=== PATIENT | female | born 1995 | race Caucasian/White ===

== ENCOUNTER 2017-06-22 17:38 | Emergency (ER) | payer SELFPAY ==
[~2017-06-22] VITALS: Ht 170.2 cm; Wt 82.0 kg
[2017-06-22] MEDS ORDERED: IBUPROFEN 600MG TABLET PO ONE ×2 (22:30→22:45)
[2017-06-22] MEDS ORDERED: BACITRACIN ZINC OINT UDPKT TOP ONE (22:30)
[2017-06-22 23:15] LABS: HCG SCREEN POSITIVE
[2017-06-23 00:05] VITALS: BP 111/60
== END 2017-06-23 00:11 | disposition home or self-care (01) ==
LOC: ER 19:39
DX: S01.83XA Puncture wound without foreign body of other part of head, initial encounter (principal); Y08.89XA Assault by other specified means, initial encounter; Y93.89 Activity, other specified; Y92.89 Other specified places as the place of occurrence of the external cause; Y99.8 Other external cause status
CPT/HCPCS: 84703; 99283; Z7610

== ENCOUNTER 2017-08-04 22:42 | Emergency (ER) | payer MEDICAID ==
[~2017-08-04] VITALS: Ht 170.2 cm; Wt 82.0 kg
[2017-08-05 00:44] LABS: BASOPHILS % 0.7 % (0.0-2.0); EOSINOPHILS % 0.6 % (0.0-5.0); HEMATOCRIT. 35.3 % (36.0-48.0); HEMOGLOBIN. 11.8 g/dL (12.0-16.0); LYMPHOCYTES % 27.4 % (20.0-50.0); MEAN CORPUSCULAR HEMOGLOBIN 30.5 pg (28.0-32.0); MEAN CORPUSCULAR VOLUME 91.2 fL (81.0-99.0); MEAN PLATELET VOLUME 10.5 fl (7.4-10.4); MONOCYTES % 6.5 % (2.0-8.0); NEUTROPHILS % 64.8 % (40.0-76.0); PLATELET 203 x1000/uL (130-400); RED BLOOD CELL COUNT 3.87 mill/uL (4.2-5.4); RED CELL DISTRIBUTION WIDTH 13.7 % (11.6-14.6)
[2017-08-05] MEDS ORDERED: ACETAMINOPHEN 325MG TABLET PO PRN (00:45)
[2017-08-05] MEDS ORDERED: ONDANSETRON 4MG ODT PO ONE (00:45)
[2017-08-05 00:50] LABS: CHLORIDE 103 mEq/L (98-107)
[2017-08-05 01:12] LABS: B-HCG QUANTITATIVE 40728 mIU/mL (<3)
[2017-08-05 01:20] VITALS: BP 118/78
[2017-08-05 03:14] LABS: CLARITY URINE CLEAR (CLEAR); COLOR URINE YELLOW (YELLOW); KETONES URINE NEGATIVE (NEGATIVE); LEUKOCYTE ESTERASE URINE 2+ (NEGATIVE); NITRITE URINE NEGATIVE (NEGATIVE); OCCULT BLOOD URINE NEGATIVE (NEGATIVE); PH URINE 6.5 (4.5-8.0); PROTEIN URINE NEGATIVE (NEGATIVE); SPECIFIC GRAVITY URINE 1.014 (1.005-1.030); UROBILINOGEN URINE 0.2 E.U./dL (0.2-1.0)
== END 2017-08-05 02:40 | disposition home or self-care (01) ==
LOC: ER 22:42
DX: O23.41 Unspecified infection of urinary tract in pregnancy, first trimester (principal); N39.0 Urinary tract infection, site not specified; Z3A.12 12 weeks gestation of pregnancy
CPT/HCPCS: 36415; 76801; 80053; 81001; 81025; 84702; 85025; 99285; Q0162

== ENCOUNTER 2018-02-07 12:42 | Inpatient (IN) | payer OTHER ==
[~2018-02-07] VITALS: Ht 165.1 cm; Wt 77.1 kg
[2018-02-07] MEDS ORDERED: DEXT 5%/LR + PITOCIN 20UNITS/L 1,000 ML IV SCH ×2 (13:08→15:17)
[2018-02-07] MEDS ORDERED: LACTATED RINGERS 1,000 ML IV SCH (13:08)
[2018-02-07] MEDS ORDERED: BUTORPHANOL TARTRATE 2 MG/ML VIAL IV PRN (13:15)
[2018-02-07] MEDS ORDERED: LIDOCAINE HCL 1% 20ML VIAL (Pyxis) INJ INFIL SCH (13:15)
[2018-02-07] MEDS ORDERED: NALOXONE HCL 0.4 MG/ML 1ML VIAL IM PRN (13:15)
[2018-02-07] MEDS ORDERED: CARBOPROST TROMETHAMINE 250 MCG/ML AMPUL IM PRN (13:15)
[2018-02-07] MEDS ORDERED: METHYLERGONOVINE MALEATE 0.2 MG/ML IM PRN (13:15)
[2018-02-07 13:40] LABS: BASOPHILS % 1.3 % (0.0-2.0); EOSINOPHILS % 0.4 % (0.0-5.0); HEMATOCRIT. 35.1 % (36.0-48.0); LYMPHOCYTES % 25.6 % (20.0-50.0); MEAN CORPUSCULAR HEMOGLOBIN 30.1 pg (28.0-32.0); MEAN CORPUSCULAR VOLUME 87.9 fL (81.0-99.0); MEAN PLATELET VOLUME 10.5 fl (7.4-10.4); MONOCYTES % 7.3 % (2.0-8.0); NEUTROPHILS % 65.4 % (40.0-76.0); PLATELET 209 x1000/uL (130-400); RED CELL DISTRIBUTION WIDTH 14.1 % (11.6-14.6)
[2018-02-07 13:48] LABS: INR 0.9; PARTIAL THROMBOPLASTIN TIME 28.2 sec (23.4-31.0); PROTHROMBIN TIME 9.6 sec (9.4-11.6)
[2018-02-07] MEDS ORDERED: PENICILLIN G POTASSIUM 5 MMU in DEXT 5% WATER 100 ML IV SCH (14:00)
[2018-02-07] MEDS ORDERED: NS EP ONE (14:00)
[2018-02-07] MEDS ORDERED: BUPIVACAINE HCL EP ONE (14:00)
[2018-02-07] MEDS ORDERED: BUPIVACAINE HCL/PF 0.25% (2.5MG/ML) 10ML ONE ×2 (14:00→14:24)
[2018-02-07] MEDS ORDERED: FENTANYL CITRATE/PF 50MCG/ML 2ML VIAL ONE ×2 (14:00→14:23)
[2018-02-07 14:33] LABS: HEPATITIS B SURFACE ANTIGEN NEGATIVE; RUBELLA IGG 29.7 IU/mL (4.99-10)
[2018-02-07 14:55] LABS: CLARITY URINE CLEAR (CLEAR); COLOR URINE YELLOW (YELLOW); KETONES URINE NEGATIVE (NEGATIVE); LEUKOCYTE ESTERASE URINE NEGATIVE (NEGATIVE); NITRITE URINE NEGATIVE (NEGATIVE); OCCULT BLOOD URINE 2+ (NEGATIVE); PROTEIN URINE NEGATIVE (NEGATIVE); SPECIFIC GRAVITY URINE 1.013 (1.005-1.030); UROBILINOGEN URINE 0.2 E.U./dL (0.2-1.0)
[2018-02-07 15:20] LABS: *AMPHETAMINES SCREEN URINE NEGATIVE (NEGATIVE); *BARBITURATES SCREEN URINE NEGATIVE (NEGATIVE); *BENZODIAZEPINES SCREEN URINE NEGATIVE (NEGATIVE); *COCAINE SCREEN URINE NEGATIVE (NEGATIVE); METHADONE URINE SCREEN NEGATIVE (NEGATIVE); OPIATES URINE SCREEN NEGATIVE (NEGATIVE)
[2018-02-07 15:21] LABS: PHENCYCLIDINE URINE SCREEN NEGATIVE (NEGATIVE)
[2018-02-07] MEDS ORDERED: ACETAMINOPHEN WITH CODEINE 300/30MG TABLET PO PRN ×2 (15:30)
[2018-02-07] MEDS ORDERED: TETANUS, DIPHTHERIA, PERTUSSIS VAC/PF 0.5ML (>7YR OLD) IM ONE (15:30)
[2018-02-07] MEDS ORDERED: DIPHENHYDRAMINE 25MG CAPSULE PO PRN (15:30)
[2018-02-07] MEDS ORDERED: BISACODYL 10MG SUPP PR PRN (15:30)
[2018-02-07] MEDS ORDERED: BENZOCAINE/LANOLIN/ALOE VERA SPRAY TOP PRN (15:30)
[2018-02-07] MEDS ORDERED: HEMORRHOIDAL SUPP PR PRN (15:30)
[2018-02-07] MEDS ORDERED: LANOLIN OINT 0.25 GM TUBE TOP PRN (15:30)
[2018-02-07] MEDS ORDERED: GLYCERIN/WITCH HAZEL LEAF MEDICATED PAD TOP PRN (15:30)
[2018-02-07 16:25] LABS: CANNABINOID URINE SCREEN PRESUMTIVE POSITIVE (NEGATIVE)
[2018-02-07 17:20] VITALS: BP 110/69
[2018-02-07 17:50] VITALS: BP 112/55
[2018-02-07] MEDS ORDERED: PENICILLIN G POTASSIUM 2.5 MMU in DEXTROSE 5% WATER 50 ML IV SCH (18:00)
[2018-02-07] MEDS: SIMETHICONE 80MG TABLET CHEW PO SCH ×2 (18:36→20:34)
[2018-02-07 19:10] VITALS: BP 96/50
[2018-02-07] MEDS: DOCUSATE SODIUM 100MG CAPSULE PO SCH (20:34)
[2018-02-07] MEDS: IBUPROFEN 400MG TABLET PO PRN (20:35)
[2018-02-07 23:40] VITALS: BP 117/60
[2018-02-08 06:59] LABS: BASOPHILS % 0.2 % (0.0-2.0); EOSINOPHILS % 0.5 % (0.0-5.0); HEMOGLOBIN. 9.6 g/dL (12.0-16.0); LYMPHOCYTES % 28.1 % (20.0-50.0); MEAN CORPUSCULAR HEMOGLOBIN 30.2 pg (28.0-32.0); MEAN CORPUSCULAR VOLUME 88.4 fL (81.0-99.0); MONOCYTES % 6.3 % (2.0-8.0); NEUTROPHILS % 64.9 % (40.0-76.0); PLATELET 176 x1000/uL (130-400); RED BLOOD CELL COUNT 3.17 mill/uL (4.2-5.4); RED CELL DISTRIBUTION WIDTH 14.3 % (11.6-14.6)
[2018-02-08 07:51] VITALS: BP 106/55
[2018-02-08] MEDS: SIMETHICONE 80MG TABLET CHEW PO SCH ×4 (08:51→21:45)
[2018-02-08] MEDS: PRENATAL VIT/FE FUMARATE/FA TABLET PO SCH (08:51)
[2018-02-08] MEDS: FERROUS SULFATE 325MG TABLET PO SCH ×2 (12:42→16:39)
[2018-02-08] MEDS: IBUPROFEN 400MG TABLET PO PRN (16:39)
[2018-02-08 17:00] VITALS: BP 97/54
[2018-02-08 20:02] VITALS: BP 98/50
[2018-02-08] MEDS: DOCUSATE SODIUM 100MG CAPSULE PO SCH (21:45)
[2018-02-09 03:45] VITALS: BP 110/60
[2018-02-09 07:45] VITALS: BP 117/63
[2018-02-09] MEDS: SIMETHICONE 80MG TABLET CHEW PO SCH (08:55)
[2018-02-09] MEDS: PRENATAL VIT/FE FUMARATE/FA TABLET PO SCH (08:55)
[2018-02-09] MEDS: FERROUS SULFATE 325MG TABLET PO SCH (08:55)
== END 2018-02-09 12:00 | disposition home or self-care (01) | DRG 560 ==
LOC: OBSVTOIN 12:42 → L&D 12:42 → 7EST PP/OB 17:12
PROVIDERS: ADMIT Specialist; ATTEND Specialist
PROC: 10E0XZZ Delivery of Products of Conception, External Approach (ICD-10-PCS; principal; 2018-02-07 14:30)
DX: O24.429 Gestational diabetes mellitus in childbirth, unspecified control (principal); O99.324 Drug use complicating childbirth; D64.9 Anemia, unspecified; O90.81 Anemia of the puerperium; F12.10 Cannabis abuse, uncomplicated; Z3A.39 39 weeks gestation of pregnancy; Z37.0 Single live birth
CPT/HCPCS: 36415; 80305; 80349; 81003; 85025; 85610; 85730; 86592; 86703; 86762; 86850; 86900; 87340; 90715; G0378; J0595; J2540; J2590; J3010; J3490; J7060; J7120; A4315